=== PATIENT | female | born 1940 | race Caucasian/White ===

== ENCOUNTER 2017-07-09 11:31 | Inpatient (IN) ==
[2017-07-09 13:31] LABS: Basophils # 0.1 10*3/uL (0.0-0.2); Basophils % 1.4 % (0.0-0.8); Eosinophils # 0.1 10*3/uL (0.0-0.87); Eosinophils % 2.3 % (0.00-10.9); Hematocrit 37.7 VOL% (35.7-47.0); Hemoglobin 12.7 GM/DL (12.0-16.0); Immature Granulocytes % 1.4 %; Immature Granulocytes Absolute 0.06 #; Lymphocytes # 0.4 10*3/uL (1.4-4.0); Lymphocytes % 8.8 % (21.3-54.2); Mean Corpuscular HGB Conc 33.7 GM/DL (32-36); Mean Corpuscular Hemoglobin 28 PG (27-34); Mean Corpuscular Volume 83.4 FL (87-102); Mean Platelet Volume 10.7 FL (9.6-12.0); Monocytes # 0.3 10*3/uL (0.11-0.8); Monocytes % 6.7 % (1.7-12.7); Neutrophils # 3.4 10*3/uL (1.4-7.4); Neutrophils % 79.4 % (38.7-73.9); Platelet Count 249 T/CUMM (130-400); Red Blood Count 4.52 MC/CUMM (3.8-5.5); Red Cell Distribution Width 23.9 % (9.3-17.3); White Blood Count 4.3 T/CUMM (4-12)
[2017-07-09 14:00] LABS: Albumin 2.9 G/DL (3.4-5.0); Bilirubin,Total 2.4 MG/DL (0.2-1.0); Calcium 9.2 MG/DL (8.5-10.1); Osmolality,Calculated 266.5 MOS/KG (273-304); Potassium 3.8 MMOL/L (3.5-5.1); Total Protein 8.1 G/DL (6.4-8.3)
[2017-07-09 14:05] LABS: Apearance,Urine Slightly Hazy (Clear); Bilirubin,Urine Negative (Negative); Blood, Urine Moderate mg/dL (Negative); Glucose,Urine (UA) Negative (Negative); Hyaline Casts,Urine 7 /LPF (0-3); Ketones,Urine 5 mg/dL (Negative); Nitrite,Urine Negative (Negative); Protein,Urine 30 MG/DL; RBC,Urine 111 /HPF (0-4); Squamous Epithelial Cell,Urine Occasional /HPF (0-10); Urine Color Amber (Yellow); Urine Specific Gravity 1.021 (1.001-1.035); WBC,Urine 5 /HPF (0-6)
[2017-07-09 14:12] LABS: Eosinophils 1 % (0-10); Lymphocytes 3 % (20-55); Segmented Neutrophils 88 % (50-85); Total Cells Counted 100
[2017-07-09 14:13] LABS: Hypochromasia 1+; Platelet Estimate Adequate
[2017-07-09] MEDS ORDERED: TISSUE ADHESIVE 1 EACH APPLICATOR TOP ONE (14:32)
[2017-07-09] MEDS ORDERED: ONDANSETRON 4 MG/2 ML VIAL IV STA (15:03)
[2017-07-09] MEDS ORDERED: cefTRIAXone 1,000 MG in SODIUM CHLORIDE 0.9% 100 ML IV STA (15:03)
[2017-07-09] MEDS ORDERED: FUROSEMIDE 100 MG/10 ML VIAL IV STA (15:03)
[2017-07-09] MEDS ORDERED: SODIUM CHLORIDE 0.9% 500 ML IV STA (15:03)
[2017-07-09] MEDS ORDERED: cefTRIAXone 1,000 MG VIAL ONE (15:10)
[2017-07-09] MEDS ORDERED: FUROSEMIDE 40 MG/4 ML VIAL ONE (15:10)
[2017-07-09] MEDS ORDERED: ONDANSETRON 4 MG/2 ML VIAL ONE (15:10)
[2017-07-09] MEDS ORDERED: ALBUTEROL 2.5 MG/3 ML NEB RESP TX SCH (15:30)
[2017-07-09] MEDS ORDERED: DOCUSATE SODIUM 100 MG CAPSULE PO PRN (15:36)
[2017-07-09] MEDS ORDERED: DEXTROSE 50% 25 GM/50 ML VIAL IV PRN (15:38)
[2017-07-09] MEDS ORDERED: GLUCAGON 1 MG VIAL IM PRN (15:38)
[2017-07-09 15:50] LABS: Lactic Acid 2.1 MMOL/L (0.4-2.0)
[2017-07-09 16:24] LABS: ABG Base Excess -1.3 MMOL/L (-2.5-2.5); ABG HCO3 23.4 MMOL/L (20-26); ABG Oxygen Saturation 99.3 % (95-100); ABG PCO2 29.5 MM HG (35-48); ABG PH 7.469 (7.35-7.45); ABG TCO2 19.2 MMOL/L (23-27)
[2017-07-09] MEDS ORDERED: LEVOFLOXACIN INJ 750 MG in PREMIX 1 EACH IV SCH (18:00)
[2017-07-09] MEDS: INSULIN REGULAR 100 UNIT/ML SUBCUT SCH ×2 (18:30→21:33)
[2017-07-09] MEDS: FUROSEMIDE 40 MG/4 ML VIAL IV SCH (18:50)
[2017-07-09] MEDS: methylPREDNISolone SOD SUC 40 MG/1 ML VIAL IV SCH (18:50)
[2017-07-09 19:19] LABS: Risk Ratio 8.92; VLDL CHOLESTEROL 18.2 MG/DL
[2017-07-09] MEDS: POTASSIUM CHLORIDE 20 MEQ TABLET PO SCH (20:05)
[2017-07-09] MEDS: PIPERACILLIN/TAZOBACTAM 3,375 MG in SODIUM CHLORIDE 0.9% 100 ML IV SCH (20:05)
[2017-07-09] MEDS: APIXABAN 5 MG TABLET PO SCH (20:05)
[2017-07-09] MEDS: DILTIAZEM 30 MG TABLET PO SCH (20:05)
[2017-07-09] MEDS: ALBUTEROL/IPRATROPIUM 3 ML NEB RESP TX SCH (20:20)
[2017-07-10] MEDS: methylPREDNISolone SOD SUC 40 MG/1 ML VIAL IV SCH ×5 (00:31→23:40)
[2017-07-10] MEDS: ALBUTEROL/IPRATROPIUM 3 ML NEB RESP TX SCH ×4 (01:31→19:43)
[2017-07-10] MEDS: PIPERACILLIN/TAZOBACTAM 3,375 MG in SODIUM CHLORIDE 0.9% 100 ML IV SCH ×3 (04:16→20:28)
[2017-07-10 07:09] LABS: Albumin 2.2 G/DL (3.4-5.0); Bilirubin,Total 1.8 MG/DL (0.2-1.0); Calcium 8.1 MG/DL (8.5-10.1); Osmolality,Calculated 268.4 MOS/KG (273-304); Potassium 3.9 MMOL/L (3.5-5.1); Total Protein 6.4 G/DL (6.4-8.3)
[2017-07-10 07:48] LABS: Hematocrit 31.5 VOL% (35.7-47.0); Hemoglobin 10.5 GM/DL (12.0-16.0); Immature Granulocytes % 0.3 %; Immature Granulocytes Absolute 0.01 #; Lymphocytes # 0.1 10*3/uL (1.4-4.0); Lymphocytes % 4.6 % (21.3-54.2); Mean Corpuscular HGB Conc 33.3 GM/DL (32-36); Mean Corpuscular Hemoglobin 28 PG (27-34); Mean Corpuscular Volume 83.1 FL (87-102); Mean Platelet Volume 10.8 FL (9.6-12.0); Monocytes # 0.1 10*3/uL (0.11-0.8); Monocytes % 1.6 % (1.7-12.7); Neutrophils # 2.9 10*3/uL (1.4-7.4); Neutrophils % 93.5 % (38.7-73.9); Platelet Count 196 T/CUMM (130-400); Red Blood Count 3.79 MC/CUMM (3.8-5.5); Red Cell Distribution Width 23.3 % (9.3-17.3); White Blood Count 3.1 T/CUMM (4-12)
[2017-07-10] MEDS: DILTIAZEM 30 MG TABLET PO SCH (08:47)
[2017-07-10] MEDS: CITALOPRAM 20 MG TABLET PO SCH (08:48)
[2017-07-10] MEDS: PANTOPRAZOLE 40 MG TABLET PO SCH (08:48)
[2017-07-10] MEDS: IRON (CARBONYL)/VIT C/B12/FA TABLET PO SCH (08:50)
[2017-07-10] MEDS: CYANOCOBALAMIN 500 MCG TABLET PO SCH (08:50)
[2017-07-10] MEDS: APIXABAN 5 MG TABLET PO SCH ×2 (08:50→20:28)
[2017-07-10 08:53] LABS: Giant Platelets Few; Hypochromasia 1+; Platelet Estimate Adequate
[2017-07-10] MEDS: FUROSEMIDE 40 MG/4 ML VIAL IV SCH ×2 (08:53→17:00)
[2017-07-10 08:54] LABS: Microcytosis Slight
[2017-07-10] MEDS: METOPROLOL SUCCINATE XL 25 MG TABLET PO SCH (08:56)
[2017-07-10] MEDS: INSULIN REGULAR 100 UNIT/ML SUBCUT SCH ×4 (08:56→20:28)
[2017-07-10 09:58] LABS: Lymphocytes 5 % (20-55); Segmented Neutrophils 89 % (50-85); Total Cells Counted 100
[2017-07-10] MEDS: SPIRONOLACTONE 25 MG TABLET PO SCH (13:24)
[2017-07-10] MEDS ORDERED: ADENOSINE 6 MG/2 ML VIAL ONE ×2 (14:17→14:29)
[2017-07-10] MEDS ORDERED: AMIODARONE INJ 450 MG in DEXTROSE 5% 241 ML IV SCH ×2 (16:30→22:30)
[2017-07-10] MEDS: LEVOFLOXACIN INJ 750 MG in PREMIX 1 EACH IV SCH (17:31)
[2017-07-10] MEDS: POTASSIUM CHLORIDE 20 MEQ TABLET PO SCH (20:28)
[2017-07-11] MEDS: ALBUTEROL/IPRATROPIUM 3 ML NEB RESP TX SCH ×4 (01:02→20:33)
[2017-07-11 05:08] LABS: Hematocrit 31.7 VOL% (35.7-47.0); Hemoglobin 10.2 GM/DL (12.0-16.0); Immature Granulocytes % 0.4 %; Immature Granulocytes Absolute 0.03 #; Lymphocytes # 0.2 10*3/uL (1.4-4.0); Mean Corpuscular HGB Conc 32.2 GM/DL (32-36); Mean Corpuscular Hemoglobin 27 PG (27-34); Mean Corpuscular Volume 85.2 FL (87-102); Mean Platelet Volume 10.7 FL (9.6-12.0); Monocytes # 0.2 10*3/uL (0.11-0.8); Monocytes % 2.6 % (1.7-12.7); Platelet Count 232 T/CUMM (130-400); Red Blood Count 3.72 MC/CUMM (3.8-5.5); Red Cell Distribution Width 23.7 % (9.3-17.3); White Blood Count 7.4 T/CUMM (4-12)
[2017-07-11 05:39] LABS: Band Neutrophils 3 % (0-10); Hypochromasia 1+; Lymphocytes 5 % (20-55); Segmented Neutrophils 88 % (50-85); Total Cells Counted 100
[2017-07-11 05:40] LABS: Acanthocytes Few; Microcytosis 1+; Target Cells Slight
[2017-07-11 05:41] LABS: Platelet Estimate Normal
[2017-07-11] MEDS: PIPERACILLIN/TAZOBACTAM 3,375 MG in SODIUM CHLORIDE 0.9% 100 ML IV SCH ×3 (05:45→22:13)
[2017-07-11] MEDS: methylPREDNISolone SOD SUC 40 MG/1 ML VIAL IV SCH ×3 (05:45→18:00)
[2017-07-11 05:49] LABS: Albumin 2.3 G/DL (3.4-5.0); Bilirubin,Direct 1.23 MG/DL (0.0-0.20); Bilirubin,Indirect 0.5 MG/DL (0.0-1.0); Bilirubin,Total 1.7 MG/DL (0.2-1.0); Calcium 8.5 MG/DL (8.5-10.1); Osmolality,Calculated 270.4 MOS/KG (273-304); Potassium 3.8 MMOL/L (3.5-5.1); Total Protein 6.5 G/DL (6.4-8.3)
[2017-07-11] MEDS: CYANOCOBALAMIN 500 MCG TABLET PO SCH (09:04)
[2017-07-11] MEDS: METOPROLOL SUCCINATE XL 25 MG TABLET PO SCH (09:05)
[2017-07-11] MEDS: APIXABAN 5 MG TABLET PO SCH ×2 (09:05→22:13)
[2017-07-11] MEDS: SPIRONOLACTONE 25 MG TABLET PO SCH (09:05)
[2017-07-11] MEDS: FUROSEMIDE 40 MG/4 ML VIAL IV SCH (09:06)
[2017-07-11] MEDS: PANTOPRAZOLE 40 MG TABLET PO SCH (09:06)
[2017-07-11] MEDS: IRON (CARBONYL)/VIT C/B12/FA TABLET PO SCH (09:09)
[2017-07-11] MEDS: AMIODARONE 200 MG TABLET PO SCH ×2 (09:12→22:13)
[2017-07-11] MEDS: INSULIN REGULAR 100 UNIT/ML SUBCUT SCH ×4 (11:47→22:12)
[2017-07-11] MEDS: LEVOFLOXACIN INJ 750 MG in PREMIX 1 EACH IV SCH (18:01)
[2017-07-11] MEDS: POTASSIUM CHLORIDE 20 MEQ TABLET PO SCH (22:13)
[2017-07-12] MEDS: methylPREDNISolone SOD SUC 40 MG/1 ML VIAL IV SCH ×4 (00:53→17:18)
[2017-07-12] MEDS: ALBUTEROL/IPRATROPIUM 3 ML NEB RESP TX SCH ×4 (02:10→19:35)
[2017-07-12 02:48] LABS: Basophils % 0.1 % (0.0-0.8); Hematocrit 30.5 VOL% (35.7-47.0); Hemoglobin 10.2 GM/DL (12.0-16.0); Immature Granulocytes % 0.9 %; Immature Granulocytes Absolute 0.09 #; Lymphocytes # 0.1 10*3/uL (1.4-4.0); Lymphocytes % 1.3 % (21.3-54.2); Mean Corpuscular HGB Conc 33.4 GM/DL (32-36); Mean Corpuscular Hemoglobin 28 PG (27-34); Mean Corpuscular Volume 83.8 FL (87-102); Mean Platelet Volume 10.6 FL (9.6-12.0); Monocytes # 0.6 10*3/uL (0.11-0.8); Monocytes % 5.3 % (1.7-12.7); Neutrophils # 9.7 10*3/uL (1.4-7.4); Neutrophils % 92.4 % (38.7-73.9); Platelet Count 224 T/CUMM (130-400); Red Blood Count 3.64 MC/CUMM (3.8-5.5); Red Cell Distribution Width 23.9 % (9.3-17.3); White Blood Count 10.5 T/CUMM (4-12)
[2017-07-12 04:41] LABS: Calcium 9.1 MG/DL (8.5-10.1); Osmolality,Calculated 269.8 MOS/KG (273-304); Potassium 4.1 MMOL/L (3.5-5.1)
[2017-07-12] MEDS: PIPERACILLIN/TAZOBACTAM 3,375 MG in SODIUM CHLORIDE 0.9% 100 ML IV SCH ×4 (05:21→23:01)
[2017-07-12 05:43] LABS: Band Neutrophils 3 % (0-10); Lymphocytes 1 % (20-55); Segmented Neutrophils 93 % (50-85); Total Cells Counted 100
[2017-07-12 05:44] LABS: Hypochromasia 1+; Platelet Estimate Normal; Target Cells Few
[2017-07-12 05:45] LABS: Ovalocytes 1+; Polychromasia Few
[2017-07-12 05:46] LABS: Giant Platelets Few
[2017-07-12] MEDS: SPIRONOLACTONE 25 MG TABLET PO SCH (09:16)
[2017-07-12] MEDS: PANTOPRAZOLE 40 MG TABLET PO SCH (09:17)
[2017-07-12] MEDS: CYANOCOBALAMIN 500 MCG TABLET PO SCH (09:17)
[2017-07-12] MEDS: CITALOPRAM 20 MG TABLET PO SCH (09:17)
[2017-07-12] MEDS: AMIODARONE 200 MG TABLET PO SCH ×2 (09:17→23:03)
[2017-07-12] MEDS: FUROSEMIDE 40 MG/4 ML VIAL IV SCH (09:17)
[2017-07-12] MEDS: METOPROLOL SUCCINATE XL 25 MG TABLET PO SCH (09:17)
[2017-07-12] MEDS: APIXABAN 5 MG TABLET PO SCH ×2 (09:17→23:02)
[2017-07-12] MEDS: INSULIN REGULAR 100 UNIT/ML SUBCUT SCH ×4 (09:18→23:02)
[2017-07-12] MEDS: IRON (CARBONYL)/VIT C/B12/FA TABLET PO SCH (10:55)
[2017-07-12] MEDS ORDERED: DIPH/TET/ACEL PERT BOOSTER VACCINE 0.5 ML VIAL IM ONE (12:48)
[2017-07-12] MEDS: LISINOPRIL 2.5 MG TABLET PO SCH (14:10)
[2017-07-12] MEDS: LEVOFLOXACIN INJ 750 MG in PREMIX 1 EACH IV SCH (18:43)
[2017-07-12] MEDS: POTASSIUM CHLORIDE 20 MEQ TABLET PO SCH (23:03)
[2017-07-13] MEDS: methylPREDNISolone SOD SUC 40 MG/1 ML VIAL IV SCH ×4 (00:11→18:02)
[2017-07-13] MEDS: ALBUTEROL/IPRATROPIUM 3 ML NEB RESP TX SCH ×4 (01:36→19:47)
[2017-07-13] MEDS: PIPERACILLIN/TAZOBACTAM 3,375 MG in SODIUM CHLORIDE 0.9% 100 ML IV SCH ×3 (06:02→22:22)
[2017-07-13 06:12] LABS: Basophils % 0.1 % (0.0-0.8); Hematocrit 31.1 VOL% (35.7-47.0); Hemoglobin 10.2 GM/DL (12.0-16.0); Immature Granulocytes % 0.8 %; Immature Granulocytes Absolute 0.08 #; Lymphocytes # 0.1 10*3/uL (1.4-4.0); Lymphocytes % 1.3 % (21.3-54.2); Mean Corpuscular HGB Conc 32.8 GM/DL (32-36); Mean Corpuscular Hemoglobin 27 PG (27-34); Mean Corpuscular Volume 83.4 FL (87-102); Mean Platelet Volume 10.3 FL (9.6-12.0); Monocytes # 0.4 10*3/uL (0.11-0.8); Monocytes % 3.7 % (1.7-12.7); Neutrophils # 9.1 10*3/uL (1.4-7.4); Neutrophils % 94.1 % (38.7-73.9); Platelet Count 207 T/CUMM (130-400); Red Blood Count 3.73 MC/CUMM (3.8-5.5); White Blood Count 9.7 T/CUMM (4-12)
[2017-07-13 06:41] LABS: Albumin 2.4 G/DL (3.4-5.0); Bilirubin,Total 1.3 MG/DL (0.2-1.0); Burr Cells Slight; Hypochromasia 2+; Macrocytosis 1+; Osmolality,Calculated 275.2 MOS/KG (273-304); Platelet Estimate Adequate; Polychromasia Slight; Segmented Neutrophils 97 % (50-85); Total Cells Counted 100; Total Protein 6.3 G/DL (6.4-8.3)
[2017-07-13] MEDS: LISINOPRIL 2.5 MG TABLET PO SCH (08:59)
[2017-07-13] MEDS: METOPROLOL SUCCINATE XL 25 MG TABLET PO SCH (08:59)
[2017-07-13] MEDS: APIXABAN 5 MG TABLET PO SCH ×2 (08:59→22:21)
[2017-07-13] MEDS: PANTOPRAZOLE 40 MG TABLET PO SCH (08:59)
[2017-07-13] MEDS: AMIODARONE 200 MG TABLET PO SCH ×2 (08:59→22:21)
[2017-07-13] MEDS: IRON (CARBONYL)/VIT C/B12/FA TABLET PO SCH (08:59)
[2017-07-13] MEDS: CITALOPRAM 20 MG TABLET PO SCH (08:59)
[2017-07-13] MEDS: CYANOCOBALAMIN 500 MCG TABLET PO SCH (08:59)
[2017-07-13] MEDS: SPIRONOLACTONE 25 MG TABLET PO SCH (08:59)
[2017-07-13] MEDS: FUROSEMIDE 40 MG/4 ML VIAL IV SCH (09:13)
[2017-07-13] MEDS: INSULIN REGULAR 100 UNIT/ML SUBCUT SCH ×4 (09:14→22:21)
[2017-07-13] MEDS: LEVOFLOXACIN INJ 750 MG in PREMIX 1 EACH IV SCH (17:57)
[2017-07-13] MEDS: POTASSIUM CHLORIDE 20 MEQ TABLET PO SCH (22:21)
[2017-07-13] MEDS: traZODone 50 MG TABLET PO PRN (22:21)
[2017-07-14] MEDS: ALBUTEROL/IPRATROPIUM 3 ML NEB RESP TX SCH ×4 (01:01→20:43)
[2017-07-14] MEDS: methylPREDNISolone SOD SUC 40 MG/1 ML VIAL IV SCH ×4 (01:16→17:58)
[2017-07-14 05:02] LABS: Hematocrit 31.8 VOL% (35.7-47.0); Hemoglobin 10.7 GM/DL (12.0-16.0); Immature Granulocytes % 0.7 %; Immature Granulocytes Absolute 0.06 #; Lymphocytes # 0.1 10*3/uL (1.4-4.0); Lymphocytes % 1.6 % (21.3-54.2); Mean Corpuscular HGB Conc 33.6 GM/DL (32-36); Mean Corpuscular Hemoglobin 28 PG (27-34); Mean Corpuscular Volume 82.8 FL (87-102); Mean Platelet Volume 10.7 FL (9.6-12.0); Monocytes # 0.3 10*3/uL (0.11-0.8); Monocytes % 3.3 % (1.7-12.7); NRBC # 0.02 10*3/uL; Neutrophils # 8.5 10*3/uL (1.4-7.4); Neutrophils % 94.4 % (38.7-73.9); Platelet Count 203 T/CUMM (130-400); Red Blood Count 3.84 MC/CUMM (3.8-5.5); Red Cell Distribution Width 23.8 % (9.3-17.3)
[2017-07-14 05:25] LABS: Band Neutrophils 1 % (0-10); Giant Platelets Few; Hypochromasia 1+; Microcytosis Slight; Ovalocytes Slight; Platelet Estimate Adequate; Segmented Neutrophils 96 % (50-85); Total Cells Counted 100
[2017-07-14] MEDS: PIPERACILLIN/TAZOBACTAM 3,375 MG in SODIUM CHLORIDE 0.9% 100 ML IV SCH ×3 (05:55→21:49)
[2017-07-14 06:00] LABS: Osmolality,Calculated 281.1 MOS/KG (273-304); Potassium 4.1 MMOL/L (3.5-5.1)
[2017-07-14] MEDS: FUROSEMIDE 40 MG/4 ML VIAL IV SCH (09:30)
[2017-07-14] MEDS: INSULIN REGULAR 100 UNIT/ML SUBCUT SCH ×4 (09:40→21:49)
[2017-07-14] MEDS: CITALOPRAM 20 MG TABLET PO SCH (10:08)
[2017-07-14] MEDS: LISINOPRIL 2.5 MG TABLET PO SCH (10:08)
[2017-07-14] MEDS: METOPROLOL SUCCINATE XL 25 MG TABLET PO SCH (10:08)
[2017-07-14] MEDS: CYANOCOBALAMIN 500 MCG TABLET PO SCH (10:08)
[2017-07-14] MEDS: SPIRONOLACTONE 25 MG TABLET PO SCH (10:09)
[2017-07-14] MEDS: PANTOPRAZOLE 40 MG TABLET PO SCH (10:09)
[2017-07-14] MEDS: APIXABAN 5 MG TABLET PO SCH ×2 (10:09→21:50)
[2017-07-14] MEDS: AMIODARONE 200 MG TABLET PO SCH ×2 (10:09→21:50)
[2017-07-14] MEDS: IRON (CARBONYL)/VIT C/B12/FA TABLET PO SCH (12:54)
[2017-07-14] MEDS: LEVOFLOXACIN INJ 750 MG in PREMIX 1 EACH IV SCH (18:00)
[2017-07-14] MEDS: traZODone 50 MG TABLET PO PRN (21:50)
[2017-07-14] MEDS: POTASSIUM CHLORIDE 20 MEQ TABLET PO SCH (21:50)
[2017-07-15] MEDS: methylPREDNISolone SOD SUC 40 MG/1 ML VIAL IV SCH ×4 (01:12→15:10)
[2017-07-15] MEDS: ALBUTEROL/IPRATROPIUM 3 ML NEB RESP TX SCH ×4 (01:51→20:00)
[2017-07-15] MEDS: PIPERACILLIN/TAZOBACTAM 3,375 MG in SODIUM CHLORIDE 0.9% 100 ML IV SCH ×3 (06:36→21:42)
[2017-07-15] MEDS ORDERED: MEPERIDINE 50 MG/1 ML VIAL IV ONE (09:59)
[2017-07-15] MEDS ORDERED: MIDAZOLAM 10 MG/2 ML VIAL IV ONE (10:00)
[2017-07-15] MEDS ORDERED: MIDAZOLAM 10 MG/2 ML VIAL ONE (10:07)
[2017-07-15] MEDS ORDERED: NALOXONE 0.4 MG/ML VIAL ONE (10:07)
[2017-07-15] MEDS ORDERED: DEXTROSE 50% 25 GM/50 ML VIAL IV PRN (12:11)
[2017-07-15] MEDS ORDERED: GLUCAGON 1 MG VIAL IM PRN (12:11)
[2017-07-15] MEDS: INSULIN REGULAR 100 UNIT/ML SUBCUT SCH ×4 (14:39→21:41)
[2017-07-15] MEDS: AMIODARONE 200 MG TABLET PO SCH ×2 (14:42→21:42)
[2017-07-15] MEDS: IRON (CARBONYL)/VIT C/B12/FA TABLET PO SCH (14:43)
[2017-07-15] MEDS: APIXABAN 5 MG TABLET PO SCH ×2 (14:43→21:42)
[2017-07-15] MEDS: PANTOPRAZOLE 40 MG TABLET PO SCH (14:43)
[2017-07-15] MEDS: FUROSEMIDE 40 MG/4 ML VIAL IV SCH (14:51)
[2017-07-15] MEDS: SPIRONOLACTONE 25 MG TABLET PO SCH (15:03)
[2017-07-15] MEDS: METOPROLOL SUCCINATE XL 25 MG TABLET PO SCH (15:06)
[2017-07-15] MEDS: CITALOPRAM 20 MG TABLET PO SCH (15:08)
[2017-07-15] MEDS: CYANOCOBALAMIN 500 MCG TABLET PO SCH (15:08)
[2017-07-15] MEDS: LISINOPRIL 2.5 MG TABLET PO SCH (15:08)
[2017-07-15] MEDS: LEVOFLOXACIN INJ 750 MG in PREMIX 1 EACH IV SCH (18:15)
[2017-07-15] MEDS: POTASSIUM CHLORIDE 20 MEQ TABLET PO SCH (21:41)
[2017-07-16] MEDS: ALBUTEROL/IPRATROPIUM 3 ML NEB RESP TX SCH ×4 (00:21→19:03)
[2017-07-16] MEDS: methylPREDNISolone SOD SUC 40 MG/1 ML VIAL IV SCH ×3 (03:34→22:48)
[2017-07-16 05:14] LABS: Basophils % 0.1 % (0.0-0.8); Hematocrit 32.3 VOL% (35.7-47.0); Hemoglobin 10.5 GM/DL (12.0-16.0); Immature Granulocytes % 0.8 %; Immature Granulocytes Absolute 0.09 #; Lymphocytes # 0.3 10*3/uL (1.4-4.0); Lymphocytes % 2.3 % (21.3-54.2); Mean Corpuscular HGB Conc 32.5 GM/DL (32-36); Mean Corpuscular Hemoglobin 28 PG (27-34); Mean Corpuscular Volume 85.7 FL (87-102); Mean Platelet Volume 10.8 FL (9.6-12.0); Monocytes # 0.8 10*3/uL (0.11-0.8); Monocytes % 6.9 % (1.7-12.7); Neutrophils # 10.5 10*3/uL (1.4-7.4); Neutrophils % 89.9 % (38.7-73.9); Platelet Count 223 T/CUMM (130-400); Red Blood Count 3.77 MC/CUMM (3.8-5.5); Red Cell Distribution Width 24.7 % (9.3-17.3); White Blood Count 11.7 T/CUMM (4-12)
[2017-07-16 05:40] LABS: Giant Platelets Few; Hypochromasia 1+; Lymphocytes 1 % (20-55); Microcytosis Slight; Ovalocytes Slight; Platelet Estimate Adequate; Segmented Neutrophils 93 % (50-85); Total Cells Counted 100
[2017-07-16 05:52] LABS: Calcium 9.2 MG/DL (8.5-10.1); Potassium 4.8 MMOL/L (3.5-5.1)
[2017-07-16] MEDS: PIPERACILLIN/TAZOBACTAM 3,375 MG in SODIUM CHLORIDE 0.9% 100 ML IV SCH ×3 (06:17→22:57)
[2017-07-16] MEDS: INSULIN REGULAR 100 UNIT/ML SUBCUT SCH ×4 (09:26→22:48)
[2017-07-16] MEDS: CYANOCOBALAMIN 500 MCG TABLET PO SCH (09:28)
[2017-07-16] MEDS: APIXABAN 5 MG TABLET PO SCH (09:28)
[2017-07-16] MEDS: SPIRONOLACTONE 25 MG TABLET PO SCH (09:28)
[2017-07-16] MEDS: AMIODARONE 200 MG TABLET PO SCH ×2 (09:29→22:47)
[2017-07-16] MEDS: METOPROLOL SUCCINATE XL 25 MG TABLET PO SCH (09:30)
[2017-07-16] MEDS: PANTOPRAZOLE 40 MG TABLET PO SCH (09:30)
[2017-07-16] MEDS: LISINOPRIL 2.5 MG TABLET PO SCH (09:30)
[2017-07-16] MEDS: IRON (CARBONYL)/VIT C/B12/FA TABLET PO SCH (09:30)
[2017-07-16] MEDS: FUROSEMIDE 40 MG/4 ML VIAL IV SCH (09:31)
[2017-07-16] MEDS: CITALOPRAM 20 MG TABLET PO SCH (09:43)
[2017-07-16] MEDS ORDERED: DEXTROSE 50% 25 GM/50 ML VIAL IV PRN (11:50)
[2017-07-16] MEDS ORDERED: GLUCAGON 1 MG VIAL IM PRN (11:50)
[2017-07-16] MEDS ORDERED: DIAZEPAM 5 MG TABLET PO ONE (13:24)
[2017-07-16] MEDS ORDERED: POTASSIUM CHLORIDE RIDER 10 MEQ in PREMIX 1 EACH IV PRN ×2 (13:24→13:31)
[2017-07-16] MEDS ORDERED: MAGNESIUM SULF RIDER 2 GM in PREMIX 1 EACH IV PRN ×2 (13:24→13:31)
[2017-07-16] MEDS ORDERED: diphenhydrAMINE CAP 25 MG CAPSULE PO ONE (13:24)
[2017-07-16] MEDS: SODIUM CHLORIDE 0.9% 1,000 ML IV SCH ×2 (18:05→23:03)
[2017-07-16] MEDS: LEVOFLOXACIN INJ 750 MG in PREMIX 1 EACH IV SCH (18:08)
[2017-07-16] MEDS: POTASSIUM CHLORIDE 20 MEQ TABLET PO SCH (22:47)
[2017-07-17] MEDS: ALBUTEROL/IPRATROPIUM 3 ML NEB RESP TX SCH ×4 (00:13→19:11)
[2017-07-17] MEDS: PIPERACILLIN/TAZOBACTAM 3,375 MG in SODIUM CHLORIDE 0.9% 100 ML IV SCH ×3 (05:27→21:36)
[2017-07-17 05:36] LABS: Basophils % 0.1 % (0.0-0.8); Hematocrit 31.8 VOL% (35.7-47.0); Hemoglobin 10.2 GM/DL (12.0-16.0); Immature Granulocytes % 0.8 %; Immature Granulocytes Absolute 0.08 #; Lymphocytes # 0.1 10*3/uL (1.4-4.0); Lymphocytes % 1.3 % (21.3-54.2); Mean Corpuscular HGB Conc 32.1 GM/DL (32-36); Mean Corpuscular Hemoglobin 28 PG (27-34); Mean Corpuscular Volume 86.6 FL (87-102); Mean Platelet Volume 10.7 FL (9.6-12.0); Monocytes # 0.4 10*3/uL (0.11-0.8); Monocytes % 3.7 % (1.7-12.7); Neutrophils # 9.2 10*3/uL (1.4-7.4); Neutrophils % 94.1 % (38.7-73.9); Platelet Count 198 T/CUMM (130-400); Red Blood Count 3.67 MC/CUMM (3.8-5.5); Red Cell Distribution Width 24.4 % (9.3-17.3); White Blood Count 9.8 T/CUMM (4-12)
[2017-07-17 05:51] LABS: INR 1.2; PT Patient Result 12.9 SECS
[2017-07-17 06:24] LABS: Calcium 8.9 MG/DL (8.5-10.1); Osmolality,Calculated 290.2 MOS/KG (273-304); Potassium 4.9 MMOL/L (3.5-5.1)
[2017-07-17] MEDS ORDERED: diphenhydrAMINE CAP 25 MG CAPSULE PO ONE (06:30)
[2017-07-17] MEDS ORDERED: DIAZEPAM 5 MG TABLET PO ONE (06:30)
[2017-07-17] MEDS: AMIODARONE 200 MG TABLET PO SCH ×2 (08:26→21:35)
[2017-07-17] MEDS: LISINOPRIL 2.5 MG TABLET PO SCH (08:26)
[2017-07-17] MEDS: INSULIN REGULAR 100 UNIT/ML SUBCUT SCH ×3 (08:31→16:26)
[2017-07-17] MEDS: METOPROLOL SUCCINATE XL 25 MG TABLET PO SCH (08:33)
[2017-07-17 08:45] LABS: Lymphocytes 1 % (20-55); Segmented Neutrophils 95 % (50-85); Total Cells Counted 100
[2017-07-17 08:46] LABS: Hypochromasia 1+; Microcytosis 1+; Ovalocytes Slight; Platelet Estimate Adequate
[2017-07-17] MEDS ORDERED: HEPARIN/NACL 0.9% 2 UNITS/ML 2,000 ML IV ONE (08:51)
[2017-07-17] MEDS ORDERED: LIDOCAINE 1% 20 ML VIAL ONE (08:51)
[2017-07-17] MEDS ORDERED: HYDROmorphone 2 MG/1 ML VIAL ONE (09:02)
[2017-07-17] MEDS ORDERED: MIDAZOLAM 2 MG/2 ML VIAL ONE (09:02)
[2017-07-17] MEDS ORDERED: NITROGLYCERIN SL 0.4 MG TABLET SL PRN (10:20)
[2017-07-17] MEDS ORDERED: ONDANSETRON 4 MG/2 ML VIAL IV PRN (10:20)
[2017-07-17] MEDS: SODIUM CHLORIDE 0.9% 1,000 ML IV SCH ×2 (14:37→15:09)
[2017-07-17] MEDS: SPIRONOLACTONE 25 MG TABLET PO SCH (15:08)
[2017-07-17] MEDS: FUROSEMIDE 40 MG/4 ML VIAL IV SCH (15:08)
[2017-07-17] MEDS: IRON (CARBONYL)/VIT C/B12/FA TABLET PO SCH (15:08)
[2017-07-17] MEDS: CITALOPRAM 20 MG TABLET PO SCH (15:08)
[2017-07-17] MEDS: CYANOCOBALAMIN 500 MCG TABLET PO SCH (15:09)
[2017-07-17] MEDS: PANTOPRAZOLE 40 MG TABLET PO SCH (15:09)
[2017-07-17] MEDS: methylPREDNISolone SOD SUC 40 MG/1 ML VIAL IV SCH ×2 (16:18→21:43)
[2017-07-17] MEDS: LEVOFLOXACIN INJ 750 MG in PREMIX 1 EACH IV SCH (17:22)
[2017-07-17] MEDS: POTASSIUM CHLORIDE 20 MEQ TABLET PO SCH (21:35)
[2017-07-18] MEDS: ALBUTEROL/IPRATROPIUM 3 ML NEB RESP TX SCH ×4 (00:44→19:57)
[2017-07-18] MEDS: PIPERACILLIN/TAZOBACTAM 3,375 MG in SODIUM CHLORIDE 0.9% 100 ML IV SCH (04:50)
[2017-07-18] MEDS: INSULIN REGULAR 100 UNIT/ML SUBCUT SCH ×5 (05:04→22:59)
[2017-07-18 05:05] LABS: Basophils % 0.1 % (0.0-0.8); Hematocrit 32.3 VOL% (35.7-47.0); Hemoglobin 10.1 GM/DL (12.0-16.0); Immature Granulocytes % 0.7 %; Immature Granulocytes Absolute 0.07 #; Lymphocytes # 0.2 10*3/uL (1.4-4.0); Lymphocytes % 1.8 % (21.3-54.2); Mean Corpuscular HGB Conc 31.3 GM/DL (32-36); Mean Corpuscular Hemoglobin 28 PG (27-34); Mean Corpuscular Volume 88.7 FL (87-102); Mean Platelet Volume 11.1 FL (9.6-12.0); Monocytes # 0.2 10*3/uL (0.11-0.8); Monocytes % 1.7 % (1.7-12.7); Neutrophils # 9.6 10*3/uL (1.4-7.4); Neutrophils % 95.7 % (38.7-73.9); Platelet Count 175 T/CUMM (130-400); Red Blood Count 3.64 MC/CUMM (3.8-5.5); Red Cell Distribution Width 24.5 % (9.3-17.3)
[2017-07-18] MEDS: SODIUM CHLORIDE 0.9% 1,000 ML IV SCH ×2 (05:05→11:35)
[2017-07-18 05:29] LABS: Calcium 8.6 MG/DL (8.5-10.1); Osmolality,Calculated 291.8 MOS/KG (273-304); Potassium 5.5 MMOL/L (3.5-5.1)
[2017-07-18 05:50] LABS: Lymphocytes 4 % (20-55); Platelet Estimate Normal; Segmented Neutrophils 95 % (50-85); Total Cells Counted 100
[2017-07-18] MEDS ORDERED: MIDAZOLAM 2 MG/2 ML VIAL ONE (09:54)
[2017-07-18] MEDS ORDERED: fentaNYL 100 MCG/2 ML VIAL ONE (09:54)
[2017-07-18] MEDS: METOPROLOL SUCCINATE XL 25 MG TABLET PO SCH (10:59)
[2017-07-18] MEDS: CITALOPRAM 20 MG TABLET PO SCH (10:59)
[2017-07-18] MEDS: AMIODARONE 200 MG TABLET PO SCH ×2 (11:00→22:05)
[2017-07-18] MEDS: PANTOPRAZOLE 40 MG TABLET PO SCH (11:00)
[2017-07-18] MEDS: SPIRONOLACTONE 25 MG TABLET PO SCH ×2 (11:00→22:58)
[2017-07-18] MEDS: IRON (CARBONYL)/VIT C/B12/FA TABLET PO SCH (11:01)
[2017-07-18] MEDS: methylPREDNISolone SOD SUC 40 MG/1 ML VIAL IV SCH ×2 (11:02→22:52)
[2017-07-18] MEDS: FUROSEMIDE 40 MG/4 ML VIAL IV SCH ×2 (11:05→16:01)
[2017-07-18] MEDS: LISINOPRIL 2.5 MG TABLET PO SCH (11:07)
[2017-07-18] MEDS: CYANOCOBALAMIN 500 MCG TABLET PO SCH (11:08)
[2017-07-19] MEDS: ALBUTEROL/IPRATROPIUM 3 ML NEB RESP TX SCH ×4 (00:50→21:33)
[2017-07-19 05:12] LABS: Basophils % 0.1 % (0.0-0.8); Hematocrit 29.6 VOL% (35.7-47.0); Hemoglobin 9.4 GM/DL (12.0-16.0); Immature Granulocytes % 0.7 %; Immature Granulocytes Absolute 0.08 #; Lymphocytes # 0.2 10*3/uL (1.4-4.0); Lymphocytes % 1.5 % (21.3-54.2); Mean Corpuscular HGB Conc 31.8 GM/DL (32-36); Mean Corpuscular Hemoglobin 28 PG (27-34); Mean Corpuscular Volume 86.8 FL (87-102); Mean Platelet Volume 11.2 FL (9.6-12.0); Monocytes # 0.2 10*3/uL (0.11-0.8); Monocytes % 2.1 % (1.7-12.7); Neutrophils # 10.2 10*3/uL (1.4-7.4); Neutrophils % 95.6 % (38.7-73.9); Platelet Count 140 T/CUMM (130-400); Red Blood Count 3.41 MC/CUMM (3.8-5.5); Red Cell Distribution Width 24.2 % (9.3-17.3); White Blood Count 10.7 T/CUMM (4-12)
[2017-07-19 05:26] LABS: Calcium 8.3 MG/DL (8.5-10.1); Osmolality,Calculated 294.4 MOS/KG (273-304); Potassium 4.6 MMOL/L (3.5-5.1)
[2017-07-19 05:37] LABS: Band Neutrophils 1 % (0-10); Giant Platelets Few; Hypochromasia 1+; Microcytosis Slight; Ovalocytes Slight; Platelet Estimate Normal; Segmented Neutrophils 96 % (50-85); Total Cells Counted 100
[2017-07-19] MEDS: INSULIN REGULAR 100 UNIT/ML SUBCUT SCH ×4 (08:46→20:57)
[2017-07-19] MEDS: CITALOPRAM 20 MG TABLET PO SCH (08:47)
[2017-07-19] MEDS: IRON (CARBONYL)/VIT C/B12/FA TABLET PO SCH (08:48)
[2017-07-19] MEDS: AMIODARONE 200 MG TABLET PO SCH ×2 (08:48→20:57)
[2017-07-19] MEDS: CYANOCOBALAMIN 500 MCG TABLET PO SCH (08:49)
[2017-07-19] MEDS: PANTOPRAZOLE 40 MG TABLET PO SCH (08:50)
[2017-07-19] MEDS: METOPROLOL SUCCINATE XL 25 MG TABLET PO SCH (08:50)
[2017-07-19] MEDS: LISINOPRIL 2.5 MG TABLET PO SCH (08:50)
[2017-07-19] MEDS: SPIRONOLACTONE 25 MG TABLET PO SCH ×2 (08:52→21:02)
[2017-07-19] MEDS: FUROSEMIDE 40 MG/4 ML VIAL IV SCH ×2 (08:53→16:44)
[2017-07-19] MEDS: methylPREDNISolone SOD SUC 40 MG/1 ML VIAL IV SCH (09:04)
[2017-07-19] MEDS ORDERED: CLOPIDOGREL 300 MG TABLET PO ONE (13:39)
[2017-07-20] MEDS: ALBUTEROL/IPRATROPIUM 3 ML NEB RESP TX SCH ×4 (01:48→20:37)
[2017-07-20 04:40] LABS: Eosinophils % 0.2 % (0.00-10.9); Hematocrit 29.3 VOL% (35.7-47.0); Hemoglobin 9.4 GM/DL (12.0-16.0); Immature Granulocytes % 0.5 %; Immature Granulocytes Absolute 0.05 #; Lymphocytes # 0.4 10*3/uL (1.4-4.0); Lymphocytes % 4.6 % (21.3-54.2); Mean Corpuscular HGB Conc 32.1 GM/DL (32-36); Mean Corpuscular Hemoglobin 28 PG (27-34); Mean Corpuscular Volume 86.7 FL (87-102); Mean Platelet Volume 11.4 FL (9.6-12.0); Monocytes # 0.5 10*3/uL (0.11-0.8); Monocytes % 5.5 % (1.7-12.7); Neutrophils # 8.4 10*3/uL (1.4-7.4); Neutrophils % 89.2 % (38.7-73.9); Platelet Count 155 T/CUMM (130-400); Red Blood Count 3.38 MC/CUMM (3.8-5.5); Red Cell Distribution Width 24.1 % (9.3-17.3); White Blood Count 9.4 T/CUMM (4-12)
[2017-07-20 05:08] LABS: Calcium 8.7 MG/DL (8.5-10.1); Osmolality,Calculated 289.4 MOS/KG (273-304)
[2017-07-20 05:46] LABS: Band Neutrophils 2 % (0-10); Giant Platelets Few; Hypochromasia 1+; Lymphocytes 4 % (20-55); Microcytosis Slight; Myelocytes 1 %; Ovalocytes Slight; Platelet Estimate Normal; Segmented Neutrophils 87 % (50-85); Total Cells Counted 100
[2017-07-20] MEDS: CLOPIDOGREL 75 MG TABLET PO SCH (09:16)
[2017-07-20] MEDS: INSULIN REGULAR 100 UNIT/ML SUBCUT SCH ×4 (09:16→21:34)
[2017-07-20] MEDS: SPIRONOLACTONE 25 MG TABLET PO SCH ×2 (09:17→21:34)
[2017-07-20] MEDS: CITALOPRAM 20 MG TABLET PO SCH (09:17)
[2017-07-20] MEDS: METOPROLOL SUCCINATE XL 25 MG TABLET PO SCH (09:17)
[2017-07-20] MEDS: CYANOCOBALAMIN 500 MCG TABLET PO SCH (09:18)
[2017-07-20] MEDS: LISINOPRIL 2.5 MG TABLET PO SCH (09:18)
[2017-07-20] MEDS: AMIODARONE 200 MG TABLET PO SCH ×2 (09:18→21:34)
[2017-07-20] MEDS: predniSONE 20 MG TABLET PO SCH (09:18)
[2017-07-20] MEDS: PANTOPRAZOLE 40 MG TABLET PO SCH (09:18)
[2017-07-20] MEDS: FUROSEMIDE 40 MG/4 ML VIAL IV SCH ×2 (09:20→16:34)
[2017-07-20] MEDS: IRON (CARBONYL)/VIT C/B12/FA TABLET PO SCH (09:20)
[2017-07-21] MEDS: ALBUTEROL/IPRATROPIUM 3 ML NEB RESP TX SCH ×3 (00:19→16:02)
[2017-07-21 05:12] LABS: Eosinophils % 0.3 % (0.00-10.9); Hematocrit 27.3 VOL% (35.7-47.0); Hemoglobin 8.8 GM/DL (12.0-16.0); Immature Granulocytes % 0.8 %; Immature Granulocytes Absolute 0.06 #; Lymphocytes # 0.4 10*3/uL (1.4-4.0); Lymphocytes % 5.6 % (21.3-54.2); Mean Corpuscular HGB Conc 32.2 GM/DL (32-36); Mean Corpuscular Hemoglobin 28 PG (27-34); Mean Corpuscular Volume 85.6 FL (87-102); Monocytes # 0.5 10*3/uL (0.11-0.8); Monocytes % 5.9 % (1.7-12.7); Neutrophils # 6.9 10*3/uL (1.4-7.4); Neutrophils % 87.4 % (38.7-73.9); Platelet Count 148 T/CUMM (130-400); Red Blood Count 3.19 MC/CUMM (3.8-5.5); Red Cell Distribution Width 23.9 % (9.3-17.3); White Blood Count 7.9 T/CUMM (4-12)
[2017-07-21 05:48] LABS: Calcium 8.2 MG/DL (8.5-10.1); Osmolality,Calculated 280.8 MOS/KG (273-304); Potassium 4.1 MMOL/L (3.5-5.1)
[2017-07-21 07:04] LABS: Hypochromasia 1+; Microcytosis 1+; Ovalocytes Slight
[2017-07-21 07:05] LABS: Platelet Estimate Adequate
[2017-07-21] MEDS: FUROSEMIDE 40 MG/4 ML VIAL IV SCH ×2 (09:29→17:13)
[2017-07-21] MEDS: INSULIN REGULAR 100 UNIT/ML SUBCUT SCH ×2 (09:42→13:19)
[2017-07-21] MEDS: CITALOPRAM 20 MG TABLET PO SCH (09:44)
[2017-07-21] MEDS: LISINOPRIL 2.5 MG TABLET PO SCH (09:44)
[2017-07-21] MEDS: PANTOPRAZOLE 40 MG TABLET PO SCH (09:45)
[2017-07-21] MEDS: CLOPIDOGREL 75 MG TABLET PO SCH (09:45)
[2017-07-21] MEDS: METOPROLOL SUCCINATE XL 25 MG TABLET PO SCH (09:45)
[2017-07-21] MEDS: AMIODARONE 200 MG TABLET PO SCH (09:50)
[2017-07-21] MEDS: CYANOCOBALAMIN 500 MCG TABLET PO SCH (09:50)
[2017-07-21] MEDS: IRON (CARBONYL)/VIT C/B12/FA TABLET PO SCH (09:50)
[2017-07-21] MEDS: SPIRONOLACTONE 25 MG TABLET PO SCH (09:50)
[2017-07-21] MEDS: predniSONE 20 MG TABLET PO SCH (09:50)
[2017-07-21] MEDS ORDERED: ASPIRIN EC 81 MG TABLET PO SCH (11:30)
[2017-07-21] MEDS ORDERED: predniSONE 10 MG TABLET PO SCH (12:49)
[2017-07-21 13:08] VITALS: BP 104/69
[2017-07-21] MEDS ORDERED: APIXABAN 2.5 MG TABLET PO SCH (21:00)
== END 2017-07-21 14:44 | disposition swing bed (61) | DRG 871 ==
LOC: N.ED 11:31 → SUATTDRO 15:10 → SUPCPDRO 15:10 → N.EDINP 15:10 → N.ICU 17:58 → N.TELEN 07-11 14:50
PROVIDERS: ATTEND Internal Medicine

== ENCOUNTER 2017-10-13 10:18 | Inpatient (IN) ==
[2017-10-13] MEDS ORDERED: PANTOPRAZOLE 40 MG VIAL IV STA (11:00)
[2017-10-13] MEDS ORDERED: SODIUM CHLORIDE 0.9% 500 ML IV STA (11:00)
[2017-10-13] MEDS ORDERED: ONDANSETRON 4 MG/2 ML VIAL IV STA (11:00)
[2017-10-13 11:40] LABS: Basophils % 0.2 % (0.0-0.8); Eosinophils # 0.1 10*3/uL (0.0-0.87); Eosinophils % 1.8 % (0.00-10.9); Hematocrit 18.4 VOL% (35.7-47.0); Immature Granulocytes % 0.7 %; Immature Granulocytes Absolute 0.03 #; Lymphocytes # 0.8 10*3/uL (1.4-4.0); Lymphocytes % 17.7 % (21.3-54.2); Mean Corpuscular HGB Conc 30.4 GM/DL (32-36); Mean Corpuscular Hemoglobin 30 PG (27-34); Mean Corpuscular Volume 97.4 FL (87-102); Mean Platelet Volume 9.9 FL (9.6-12.0); Monocytes # 0.5 10*3/uL (0.11-0.8); Monocytes % 11.7 % (1.7-12.7); Neutrophils # 3.1 10*3/uL (1.4-7.4); Neutrophils % 67.9 % (38.7-73.9); Platelet Count 260 T/CUMM (130-400); Red Blood Count 1.89 MC/CUMM (3.8-5.5); Red Cell Distribution Width 16.2 % (9.3-17.3); White Blood Count 4.5 T/CUMM (4-12)
[2017-10-13 11:50] LABS: Hemoglobin 5.6 GM/DL (12.0-16.0)
[2017-10-13 11:56] LABS: Ammonia 16 UMOL/L (11-32)
[2017-10-13 12:03] LABS: Alanine Aminotransferase 22 U/L (13-56); Albumin 2.9 G/DL (3.4-5.0); Alkaline Phosphatase 99 U/L (45-117); Aspartate Amino Transferase 16 U/L (0-37); Bilirubin,Total < 0.39 MG/DL (0.2-1.0); Blood Urea Nitrogen 54 MG/DL (7-18); Calcium 8.4 MG/DL (8.5-10.1); Glucose 192 MG/DL (74-106); Potassium 4.5 MMOL/L (3.5-5.1); Sodium 136 MMOL/L (136-145); Total Protein 7.4 G/DL (6.4-8.3); Troponin I Only < 0.015 NG/ML (0.00-0.045)
[2017-10-13 12:08] LABS: INR 1.1; PT Patient Result 11.4 SECS
[2017-10-13] MEDS ORDERED: DOCUSATE SODIUM 100 MG CAPSULE PO PRN (13:41)
[2017-10-13] MEDS ORDERED: NITROGLYCERIN SL 0.4 MG TABLET SL PRN (13:41)
[2017-10-13] MEDS ORDERED: ZINC OXIDE PASTE 113 GM TUBE TOP PRN (13:41)
[2017-10-13] MEDS ORDERED: traMADol 50 MG TABLET PO PRN (13:41)
[2017-10-13] MEDS ORDERED: SODIUM CHLORIDE 0.9% 1,000 ML IV PRN (14:39)
[2017-10-13] MEDS ORDERED: FUROSEMIDE 20 MG/2 ML VIAL IV ONE (15:04)
[2017-10-13] MEDS: ATORVASTATIN 20 MG TABLET PO SCH (21:43)
[2017-10-13] MEDS: PANTOPRAZOLE 40 MG VIAL IV SCH (21:44)
[2017-10-13] MEDS: SPIRONOLACTONE 25 MG TABLET PO SCH (21:44)
[2017-10-13] MEDS: traZODone 50 MG TABLET PO SCH (21:44)
[2017-10-14 06:22] LABS: Basophils % 0.5 % (0.0-0.8); Eosinophils # 0.1 10*3/uL (0.0-0.87); Eosinophils % 2.5 % (0.00-10.9); Hematocrit 27.1 VOL% (35.7-47.0); Hemoglobin 8.8 GM/DL (12.0-16.0); Immature Granulocytes % 0.7 %; Immature Granulocytes Absolute 0.04 #; Lymphocytes # 0.8 10*3/uL (1.4-4.0); Lymphocytes % 14.4 % (21.3-54.2); Mean Corpuscular HGB Conc 32.5 GM/DL (32-36); Mean Corpuscular Hemoglobin 29 PG (27-34); Mean Corpuscular Volume 88.3 FL (87-102); Mean Platelet Volume 9.6 FL (9.6-12.0); Monocytes # 0.8 10*3/uL (0.11-0.8); Monocytes % 13.5 % (1.7-12.7); Neutrophils # 3.9 10*3/uL (1.4-7.4); Neutrophils % 68.4 % (38.7-73.9); Platelet Count 256 T/CUMM (130-400); Red Blood Count 3.07 MC/CUMM (3.8-5.5); Red Cell Distribution Width 17.5 % (9.3-17.3); White Blood Count 5.7 T/CUMM (4-12)
[2017-10-14 06:41] LABS: Albumin 3.2 G/DL (3.4-5.0); Bilirubin,Total 0.5 MG/DL (0.2-1.0); Calcium 9.5 MG/DL (8.5-10.1); Osmolality,Calculated 284.8 MOS/KG (273-304); Potassium 4.7 MMOL/L (3.5-5.1); Total Protein 8.1 G/DL (6.4-8.3)
[2017-10-14] MEDS: SPIRONOLACTONE 25 MG TABLET PO SCH ×2 (08:45→20:00)
[2017-10-14] MEDS ORDERED: PANTOPRAZOLE 40 MG TABLET PO SCH (09:00)
[2017-10-14] MEDS: PANTOPRAZOLE 40 MG VIAL IV SCH ×2 (09:43→20:01)
[2017-10-14] MEDS ORDERED: ETOMIDATE 20 MG/10 ML VIAL IV ONE (13:11)
[2017-10-14] MEDS ORDERED: LIDOCAINE 2% 5 ML VIAL ONE (13:11)
[2017-10-14] MEDS: IRON (CARBONYL)/VIT C/B12/FA TABLET PO SCH (14:09)
[2017-10-14] MEDS: FUROSEMIDE 40 MG TABLET PO SCH (14:09)
[2017-10-14] MEDS: LISINOPRIL 2.5 MG TABLET PO SCH (14:09)
[2017-10-14] MEDS: CITALOPRAM 20 MG TABLET PO SCH (14:12)
[2017-10-14] MEDS: METOPROLOL SUCCINATE XL 25 MG TABLET PO SCH (14:12)
[2017-10-14] MEDS: ATORVASTATIN 20 MG TABLET PO SCH (20:00)
[2017-10-14] MEDS: traZODone 50 MG TABLET PO SCH (20:00)
[2017-10-15] MEDS: CITALOPRAM 20 MG TABLET PO SCH (08:58)
[2017-10-15] MEDS: PANTOPRAZOLE 40 MG VIAL IV SCH ×2 (08:58→21:30)
[2017-10-15] MEDS: SPIRONOLACTONE 25 MG TABLET PO SCH ×2 (08:59→21:33)
[2017-10-15] MEDS: METOPROLOL SUCCINATE XL 25 MG TABLET PO SCH (08:59)
[2017-10-15] MEDS: IRON (CARBONYL)/VIT C/B12/FA TABLET PO SCH (08:59)
[2017-10-15] MEDS: FUROSEMIDE 40 MG TABLET PO SCH (08:59)
[2017-10-15] MEDS: LISINOPRIL 2.5 MG TABLET PO SCH (09:00)
[2017-10-15] MEDS ORDERED: ONDANSETRON 4 MG/2 ML VIAL ONE (11:09)
[2017-10-15] MEDS ORDERED: ONDANSETRON 4 MG/2 ML VIAL IV PRN (11:14)
[2017-10-15] MEDS ORDERED: SODIUM CHLORIDE 0.9% 500 ML IV ONE (16:19)
[2017-10-15] MEDS: SODIUM CHLORIDE 0.9% 1,000 ML IV SCH (16:50)
[2017-10-15] MEDS: traZODone 50 MG TABLET PO SCH (21:32)
[2017-10-15] MEDS: ATORVASTATIN 20 MG TABLET PO SCH (21:33)
[2017-10-15] MEDS ORDERED: SODIUM CHLORIDE 0.9% 1,000 ML IV ONE (23:22)
[2017-10-16 07:25] LABS: Hemoglobin 8.1 GM/DL (12.0-16.0)
[2017-10-16 08:09] LABS: Basophils % 0.2 % (0.0-0.8); Eosinophils # 0.1 10*3/uL (0.0-0.87); Eosinophils % 0.6 % (0.00-10.9); Hematocrit 25.6 VOL% (35.7-47.0); Hemoglobin 8.3 GM/DL (12.0-16.0); Immature Granulocytes % 0.3 %; Immature Granulocytes Absolute 0.04 #; Lymphocytes # 0.8 10*3/uL (1.4-4.0); Mean Corpuscular HGB Conc 32.4 GM/DL (32-36); Mean Corpuscular Hemoglobin 29 PG (27-34); Mean Corpuscular Volume 90.8 FL (87-102); Mean Platelet Volume 10.9 FL (9.6-12.0); Monocytes # 1.2 10*3/uL (0.11-0.8); Monocytes % 9.3 % (1.7-12.7); Neutrophils # 10.7 10*3/uL (1.4-7.4); Neutrophils % 83.6 % (38.7-73.9); Platelet Count 235 T/CUMM (130-400); Red Blood Count 2.82 MC/CUMM (3.8-5.5); Red Cell Distribution Width 17.2 % (9.3-17.3); White Blood Count 12.8 T/CUMM (4-12)
[2017-10-16 08:50] LABS: Band Neutrophils 7 % (0-10); Eosinophils 1 % (0-10); Hypochromasia 1+; Lymphocytes 5 % (20-55); Platelet Estimate Adequate; Segmented Neutrophils 80 % (50-85); Total Cells Counted 100
[2017-10-16 08:51] LABS: Ovalocytes Slight
[2017-10-16] MEDS: SPIRONOLACTONE 25 MG TABLET PO SCH (10:12)
[2017-10-16] MEDS: CITALOPRAM 20 MG TABLET PO SCH (10:12)
[2017-10-16] MEDS: IRON (CARBONYL)/VIT C/B12/FA TABLET PO SCH (10:13)
[2017-10-16] MEDS: FUROSEMIDE 40 MG TABLET PO SCH (10:13)
[2017-10-16] MEDS: SODIUM CHLORIDE 0.9% 1,000 ML IV SCH (10:39)
[2017-10-16] MEDS: PANTOPRAZOLE 40 MG VIAL IV SCH ×2 (10:39→21:19)
[2017-10-16 10:51] LABS: Apearance,Urine CLOUDY (Clear); Bacteria,Urine Many /HPF (Few); Bilirubin,Urine Negative (Negative); Blood, Urine Negative (Negative); Glucose,Urine (UA) Negative (Negative); Ketones,Urine Negative (Negative); Mucus,Urine Occasional /LPF (Occasional); Nitrite,Urine Negative (Negative); Protein,Urine 30 MG/DL; Urine Color Amber (Yellow); Urine Specific Gravity 1.011 (1.001-1.035); Urine Urobilinogen < 2.0 EU/DL (0.2-1.0); WBC,Urine 86 /HPF (0-6)
[2017-10-16 11:04] LABS: Calcium 8.9 MG/DL (8.5-10.1); Osmolality,Calculated 289.5 MOS/KG (273-304); Potassium 4.4 MMOL/L (3.5-5.1)
[2017-10-16] MEDS: cefTRIAXone 1,000 MG in SYRINGE 1 EACH IV SCH (11:37)
[2017-10-16] MEDS: traZODone 50 MG TABLET PO SCH (21:19)
[2017-10-16] MEDS: ATORVASTATIN 20 MG TABLET PO SCH (21:20)
[2017-10-17] MEDS: SODIUM CHLORIDE 0.9% 1,000 ML IV SCH ×2 (10:02→15:51)
[2017-10-17] MEDS: PANTOPRAZOLE 40 MG VIAL IV SCH ×2 (10:02→20:44)
[2017-10-17] MEDS: CITALOPRAM 20 MG TABLET PO SCH (10:03)
[2017-10-17] MEDS: IRON (CARBONYL)/VIT C/B12/FA TABLET PO SCH (10:03)
[2017-10-17] MEDS: METOPROLOL SUCCINATE XL 25 MG TABLET PO SCH (10:03)
[2017-10-17] MEDS: cefTRIAXone 1,000 MG in SYRINGE 1 EACH IV SCH ×2 (10:06→11:18)
[2017-10-17] MEDS: traZODone 50 MG TABLET PO SCH (20:43)
[2017-10-17] MEDS: ATORVASTATIN 20 MG TABLET PO SCH (20:43)
[2017-10-18] MEDS: SODIUM CHLORIDE 0.9% 1,000 ML IV SCH (06:29)
[2017-10-18 06:49] LABS: Potassium 4.3 MMOL/L (3.5-5.1)
[2017-10-18] MEDS: CITALOPRAM 20 MG TABLET PO SCH (10:17)
[2017-10-18] MEDS: FUROSEMIDE 40 MG TABLET PO SCH (10:17)
[2017-10-18] MEDS: METOPROLOL SUCCINATE XL 25 MG TABLET PO SCH (10:17)
[2017-10-18] MEDS: PANTOPRAZOLE 40 MG VIAL IV SCH (10:17)
[2017-10-18] MEDS: IRON (CARBONYL)/VIT C/B12/FA TABLET PO SCH (10:17)
[2017-10-18] MEDS: cefTRIAXone 1,000 MG in SYRINGE 1 EACH IV SCH (12:27)
[2017-10-18 12:31] VITALS: BP 125/73
== END 2017-10-18 15:30 | DRG 378 ==
LOC: EDUNIT# → N.ED 10:18 → N.EDINP 13:39 → N.5E 17:14
PROVIDERS: ADMIT Internal Medicine; ATTEND Internal Medicine